=== PATIENT | male | born 1975 | race Caucasian/White ===

== ENCOUNTER 2023-10-03 08:53 | Emergency (ER) | payer BC, SELFPAY ==
[2023-10-03] MEDS ORDERED: KETOROLAC 30 MG/ML INJ ONE (09:38)
--- NOTE | 2023-10-03 10:13 | RAD REPORT ---
EXAM DESCRIPTION: RAD - Wrist Right 3 View - 10/03/2023 9:42 am CLINICAL HISTORY: Right wrist pain status post injury FINDINGS: 4 millimeter bony/calcific density lies along dorsal aspect of the wrist. This probably re presents an avulsion fracture from the triquetrum. This should be correlated clinically to see if the patient has point tenderness in this region No dislocation
--- NOTE | 2023-10-03 10:32 | EDPHYS ---
Physician Documentation [facility] Name: Parish Bales Age: 48 yrs Sex: Male : 1975 Arrival Date: 10/03/2023 Time: 08:53 Bed IW10 Private MD: ED Physician Noel Bray HPI: 10/02 10:27 This 48 yrs old Male presents to ER via Ambulatory with complaints of Fall sterling Injury, Wrist Injury. 10:27 Details of fall: The patient fell from a height, from a ladder, approximately 5 feet. sterling Onset: The symptoms/episode began/occurred yesterday. Associated injuries: The patient sustained dorsal aspect of right wrist, decreased range of motion. Severity of symptoms: At their worst the symptoms were moderate, in the emergency department the symptoms are unchanged. The patient has not experienced similar symptoms in the past. Historical: - Allergies: 09:20 No Known Allergies; ph - PMHx: 09:20 None; ph - Immunization history:: Adult Immunizations up to date. - Infectious Disease History:: Denies. CDIFF, C. Auris, ESBL, MRSA (w/in 1 year), VRE (w/in 1 year), TB, . - Social history:: Smoking status: Patient reports the use of cigarette tobacco products, smokes one pack cigarettes per day. ROS: 10:29 Constitutional: Negative for fever, chills, and weight loss, Eyes: Negative for injury, sterling pain, redness, and discharge, ENT: Negative for injury, pain, and discharge, Neck: Negative for injury, pain, and swelling, Cardiovascular: Negative for chest pain, palpitations, and edema, Respiratory: Negative for shortness of breath, cough, wheezing, and pleuritic chest pain, Abdomen/GI: Negative for abdominal pain, nausea, vomiting, diarrhea, and constipation, Back: Negative for injury and pain, : Negative for injury, bleeding, discharge, and swelling, Skin: Negative for injury, rash, and discoloration, Neuro: Negative for headache, weakness, numbness, tingling, and seizure, Psych: Negative for depression, anxiety, suicide ideation, homicidal ideation, and hallucinations, Allergy/Immunology: Negative for hives, rash, and allergies, Endocrine: Negative for neck swelling, polydipsia, polyuria, polyphagia, and marked weight changes, Hematologic/Lymphatic: Negative for swollen nodes, abnormal bleeding, and unusual bruising, 10:29 MS/extremity: Positive for decreased range of motion, pain, swelling, tenderness, of the dorsal aspect of right wrist and palmar aspect of right wrist, Exam: 10:29 Hand exam: Exam is positive for decreased range of motion, fracture, injury, pain, sterling swelling, tenderness, ROM: limited active range of motion due to pain, limited passive range of motion due to pain, Circulation is intact in all extremities. sensation intact. Compartment Syndrome exam of affected extremity: is normal. Tendon exam: specific tendon testing normal through active and passive range of motion 10:29 Constitutional: This is a well developed, well nourished patient who is awake, alert, and in no acute distress. Head/Face: Normocephalic, atraumatic. Eyes: Pupils equal round and reactive to light, extra-ocular motions intact. Lids and lashes normal. Conjunctiva and sclera are non-icteric and not injected. Cornea within normal limits. Periorbital areas with no swelling, redness, or edema. ENT: Nares patent. No nasal discharge, no septal abnormalities noted. Tympanic membranes are normal and external auditory canals are clear. Oropharynx with no redness, swelling, or masses, exudates, or evidence of obstruction, uvula midline. Mucous membranes moist. Neck: Trachea midline, no thyromegaly or masses palpated, and no cervical lymphadenopathy. Supple, full range of motion without nuchal rigidity, or vertebral point tenderness. No Meningismus. Chest/axilla: Normal chest wall appearance and motion. Nontender with no deformity. No lesions are appreciated. Cardiovascular: Regular rate and rhythm with a normal S1 and S2. No gallops, murmurs, or rubs. Normal PMI, no JVD. No pulse deficits. Respiratory: Lungs have equal breath sounds bilaterally, clear to auscultation and percussion. No rales, rhonchi or wheezes noted. No increased work of breathing, no retractions or nasal flaring. Abdomen/GI: Soft, non-tender, with normal bowel sounds. No distension or tympany. No guarding or rebound. No evidence of tenderness throughout. Back: No spinal tenderness. No costovertebral tenderness. Full range of motion. Male : Normal genitalia with no discharge or lesions. Skin: Warm, dry with normal turgor. Normal color with no rashes, no lesions, and no evidence of cellulitis. Neuro: Awake and alert, GCS 15, oriented to person, place, time, and situation. Cranial nerves II-XII grossly intact. Motor strength 5/5 in all extremities. Sensory grossly intact. Cerebellar exam normal. Normal gait. Psych: Awake, alert, with orientation to person, place and time. Behavior, mood, and affect are within normal limits. Vital Signs: 09:19 BP 125 / 90; Pulse 86; Resp 18; Temp 98; Pulse Ox 99% on R/A; Weight 122.47 kg; Height ph 6 ft. 2 in. ; 11:25 BP 140 / 90; Pulse 84; Resp 18; Pulse Ox 99% ; cp4 09:19 Body Mass Index 34.67 (122.47 kg, 187.96 cm) ph MDM: 08:56 Patient medically screened. sterling 10:30 Differential diagnosis: contusion, fracture, multiple trauma, sprain, strain. sterling Differential diagnosis: dislocation, closed fracture, contusion, abrasion, tendonitis. Data reviewed: vital signs, nurses notes, radiologic studies, plain films. Consideration of Admission/Observation Escalation of care including admission/observation considered. I considered the following discharge prescriptions or medication management in the emergency department Medications were administered in the Emergency Department. See MAR. Test considered but Not performed: Labs: no labs. Care significantly affected by the following chronic conditions: Obesity, none. 10/02 09:25 Order name: Wrist Right 3 View XRAY [facility] 10/02 09:25 Order name: Ice pack; Complete Time: 09:48 [facility] 10/02 12:01 Order name: Splint - Volar Wrist Splint: cock up sterling Administered Medications: 09:48 Not Given (Patient Refused): mg IM once aa5 11:20 Drug: [place] PO 10 mg-325 mg 1 tabs PO once Route: PO; cp4 11:26 Follow up: Response: No adverse reaction cp4 Disposition Summary: 10/03/23 10:32 Discharge Ordered Notes: Location: Home sterling Problem: new sterling Symptoms: have improved sterling Condition: Stable sterling Diagnosis - Pain in right wrist - avulsion fracture , wrist TRIQUETRUM sterling - Fall (on) (from) other stairs and steps sterling Followup: sterling - With: Private Physician - When: 2 - 3 days - Reason: Recheck today's complaints, Continuance of care, Re-evaluation by your physician Followup: sterling - With: Be Burns MD - When: 1 - 2 days - Reason: Recheck today's complaints, Re-evaluation by your physician Discharge Instructions: - Discharge Summary Sheet sterling - Joint Pain sterling - Musculoskeletal Pain sterling - Wrist Fracture Treated With Immobilization sterling - Wrist Pain, Adult sterling - Wrist Fracture Treated With Immobilization, Adxg-ea-Wghb sterling - Wrist Pain, Adult, Arfb-og-Doed [facility] Forms: - Medication Reconciliation Form [facility] - Antibiotic Education sterling - Prescription Opioid Use [facility] - Patient Portal Instructions [facility] - Leadership Thank You Letter [facility] Prescriptions: - acetaminophen-codeine 300-30 mg Oral tablet - take 2 tablet ORAL route every 6 hours; 20 tablet; Refills: 0, Product [facility] Selection Permitted - Ibuprofen 600 mg Oral Tablet - take 1 tablet ORAL route every 6 hours As needed take with food; 30 tablet; [facility] Refills: 0, Product Selection Permitted Signatures: Dispatcher [employer] Noel Marino MD MD cha Hall, Patricia, RN RN Melonie De Leon cp4 Sheree Kern RN aa5
--- NOTE | 2023-10-03 10:32 | ER ---
Nurse's Notes [facility] Name: Parish Bales Age: 48 yrs Sex: Male : 1975 Arrival Date: 10/03/2023 Time: 08:53 Bed IW10 Private MD: Diagnosis: Pain in right wrist-avulsion fracture , wrist TRIQUETRUM;Fall (on) (from) other stairs and steps Presentation: 10/02 09:19 Chief complaint: Patient states: Fell off of a step ladder last night, c/o R wrist ph pain, no obvious deformity, no other injuries. Coronavirus screen: Vaccine status: Patient reports receiving the 2nd dose of the covid vaccine. Ebola Screen: No symptoms or risks identified at this time. Initial Sepsis Screen: Does the patient meet any 2 criteria? No. Patient's initial sepsis screen is negative. Does the patient have a suspected source of infection? No. Patient's initial sepsis screen is negative. Risk Assessment: Do you want to hurt yourself or someone else? Patient reports no desire to harm self or others. Onset of symptoms was October 03, 2023. 09:19 Method Of Arrival: Ambulatory ph 09:19 Acuity: REYMUNDO 4 ph Triage Assessment: 09:20 General: Appears in no apparent distress. Behavior is calm, cooperative. Pain: ph Complains of pain in right wrist. Historical: - Allergies: 09:20 No Known Allergies; ph - PMHx: 09:20 None; ph - Immunization history:: Adult Immunizations up to date. - Infectious Disease History:: Denies. CDIFF, C. Auris, ESBL, MRSA (w/in 1 year), VRE (w/in 1 year), TB, . - Social history:: Smoking status: Patient reports the use of cigarette tobacco products, smokes one pack cigarettes per day. Screenin:23 [facility] ED Fall Risk Assessment (Adult) History of falling in the last 3 months, cp4 including since admission No falls in past 3 months (0 pts) Confusion or Disorientation No (0 pts) Intoxicated or Sedated No (0 pts) Impaired Gait No (0 pts) Mobility Assist Device Used No (0 pt) Altered Elimination No (0 pt) Score/Fall Risk Level 0 - 2 = Low Risk Oriented to surroundings, Maintained a safe environment, Assessed \\T\\ reinforced patient's understanding of fall precautions, Hourly rounding (assess needs \\T\\ fall precautionary measures) done. Abuse screen: Denies threats or abuse. Nutritional screening: No deficits noted. Tuberculosis screening: No symptoms or risk factors identified. Assessment: 09:48 Reassessment: Patient is alert, oriented x 3, equal unlabored respirations, skin aa5 warm/dry/pink. Ice pack given, pt refused toradol IM, pt states "I don't like shots, can I have a pill?", pt's mother states "he already took 2 Aleve this morning". MD was notified of pt's request. . Vital Signs: 09:19 BP 125 / 90; Pulse 86; Resp 18; Temp 98; Pulse Ox 99% on R/A; Weight 122.47 kg; Height ph 6 ft. 2 in. ; 11:25 BP 140 / 90; Pulse 84; Resp 18; Pulse Ox 99% ; cp4 09:19 Body Mass Index 34.67 (122.47 kg, 187.96 cm) ph ED Course: 08:54 Patient arrived in ED. mr 08:56 Noel Bray MD is Attending Physician. sterling 09:18 Janice Lucio, RN is Primary Nurse. ph 09:20 Triage completed. ph 09:20 Arm band placed on Patient placed in an exam room, on a stretcher. ph 09:44 Wrist Right 3 View XRAY In Process Unspecified. EDMS 10:31 Be Burns MD is Referral Physician. sterling 11:23 Bed in low position. Call light in reach. Side rails up X 1. Provided Education on: cp4 wrist fracture. 11:23 No provider procedures requiring assistance completed. Patient did not have IV access cp4 during this emergency room visit. 11:56 Primary Nurse role handed off by Janice Lucio, RN em1 Administered Medications: 09:48 Not Given (Patient Refused): [id number] mg IM once aa5 11:20 Drug: [place] PO 10 mg-325 mg 1 tabs PO once Route: PO; cp4 11:26 Follow up: Response: No adverse reaction cp4 Medication: 11:23 VIS not applicable for this client. cp4 Outcome: 10:32 Discharge ordered by . sterling 11:23 Discharged to home ambulatory, cp4 11:23 Condition: stable 11:23 Discharge instructions given to patient, Instructed on discharge instructions, follow up and referral plans. medication usage, Demonstrated understanding of instructions, follow-up care, medications, Prescriptions given X 2, 11:26 Patient left the ED. cp4 Signatures: Dispatcher [employer] EDMS Noel Bray MD MD cha Rivera, Kia, [facility] Reg mr Flores, Juan em1 Sheree Kern RN RN aa5 Janice Lucio RN RN Melonie Hylton cp4 Corrections: (The following items were deleted from the chart) 12:20 12:20 Patient left the ED. aa5 aa5
[2023-10-03] MEDS ORDERED: HYDROCODONE/APAP 10/325 TAB ONE (11:09)
[2023-10-03 11:39] VITALS: TEMP 98; O2SAT 99
[2023-10-03 12:56] VITALS: BP 140/90
== END 2023-10-03 12:20 | disposition home or self-care (01) ==
LOC: ER 08:53
DX: S62.111A Displaced fracture of triquetrum [cuneiform] bone, right wrist, initial encounter for closed fracture (principal); W10.8XXA Fall (on) (from) other stairs and steps, initial encounter
CPT/HCPCS: 99283